=== PATIENT | female | born 1970 | race Caucasian/White ===

== ENCOUNTER 2018-05-31 09:36 | Emergency (ER) | END 2018-05-31 12:52 | disposition home or self-care (01) ==

== ENCOUNTER 2019-01-06 13:20 | Emergency (ER) | payer BC ==
[~2019-01-06] VITALS: Ht 152.4 cm; Wt 54.5 kg
[~2019-01-06 13:20] MED LIST: ALBU18HF IH; B.AN1CAP PO; CIPR500T4; COFF400C PO; CYCL10TA7 PO; DOCU-144; IBUP-1544; LAMO150T3 PO; NAPR-985 PO; OMEP20CA9; PERCOCET; TRAM50TA2 PO
[2019-01-06 13:23] VITALS: BP 143/95; PULSE 113; RESP 18; Ht 152.4 cm; Wt 54.5 kg
[2019-01-06] MEDS ORDERED: DOXY100T20 PO (14:28)
--- NOTE | 2019-01-06 14:45 | ERD ---
ER Documentation Chief Complaint Chief Complaint pt is bib self, sent from Urgent Care for mouth abscess poss infection HPI 48-year-old female presenting with a mouth sore. 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 Patient states that ever since she then she has had pain and feels it is not healing appropriately. Patient was seen in urgent care and they were concerned about a possible abscess in her gums. She has not been started on antibiotics yet. Denies other medical problems. Allergies to Keflex codeine and penicillin. Surgical history denies. Social history denies ROS All systems reviewed and are negative except as per history of present illness. Medications Home Meds Active Scripts Doxycycline Hyclate* (Doxycycline Hyclate*) 100 Mg Tablet., 100 MG PO BID for 10 Days, TAB Prov:CARLA ARTHUR PA-C 01/06/19 Cyclobenzaprine Hcl* (Cyclobenzaprine Hcl*) 10 Mg Tablet, 10 MG PO QHS, #7 TAB Prov:TRUDY CASTRO PA-C 05/31/18 Naproxen* (Naprosyn*) 500 Mg Tablet, 500 MG PO BID PRN for PAIN AND/OR INFLAMMATION, #30 TAB Prov:TRUDY CASTRO PA-C 05/31/18 Tramadol HCl (Tramadol HCl) 50 Mg Tablet, 50 MG PO Q6 PRN for PAIN, #20 TAB Prov:TRUDY CASTRO PA-C 05/31/18 Reported Medications Ciprofloxacin Hcl* (Ciprofloxacin Hcl*) 500 Mg Tablet 03/04/13 Docusate Sodium* (Colace*) 100 Mg Capsule 03/04/13 Omeprazole* (Prilosec*) 20 Mg Capsule. 03/04/13 Ibuprofen* (Ibuprofen*) 800 Mg Tablet 03/04/13 Oxycodone Hcl/Acetaminophen (Percocet) 1 Tab Tab 03/04/13 Coffee Extract (GREEN COFFEE PARRA) 400 Mg Capsule, 400 MG PO DAILY 02/27/13 Albuterol Sulfate* (Ventolin HFA*) 18 Gm Hfa.aer.ad, 18 GM IH PRN 4 PUFFS, #4 07/18/12 B.ani/L.aci/L.mikey/L.plan/L.liu (Probiotic Formula Capsule) 1 Each Capsule, 1 EACH PO BID, #2 07/18/12 Lamotrigine* (Lamictal*) 150 Mg Tablet, 150 MG PO DAILY 07/18/12 Allergies Allergies: Coded Allergies: Penicillins (Verified Allergy, Severe, SWELLING/TROUBLE BREATHING, 03/04/13) Cephalexin Monohydrate (Verified Allergy, Intermediate, WHEEZING, ASTHMA ATTACK, 03/04/13) Codeine (Verified Allergy, Intermediate, WHEEZING, ASTHMA ATTACK, 03/04/13) PMhx/Soc Medical and Surgical Hx: pt denies Medical Hx, pt denies Surgical Hx History of Surgery: No Anesthesia Reaction: No Hx Neurological Disorder: No Hx Respiratory Disorders: No Hx Cardiac Disorders: No Hx Psychiatric Problems: No Hx Miscellaneous Medical Probl: No Hx Alcohol Use: No Hx Substance Use: No Hx Tobacco Use: No Smoking Status: Never smoker Physical Exam Vitals Vital Signs Date Temp Pulse Resp B/P (MAP) Pulse Ox O2 O2 Flow FiO2 Time Delivery Rate 01/06/19 98.1 113 18 143/95 96 13:23 (111) Physical Exam GENERAL: The patient is well-appearing, well-nourished, in no acute distress HEENT: Atraumatic. Conjunctivae are pink. Pupils equal, round, and reactive to light. There is no scleral icterus. Tympanic membranes clear bilaterally. Oropharynx clear. Open irregularly bordered lesions noted to the roof of the mouth on the right side. No induration. Mild swelling noted. NECK: C-spine is soft and supple. There is no meningismus. There is no cervical lymphadenopathy. CHEST: Clear to auscultation bilaterally. There are no rales, wheezes or rhonchi. HEART: Regular rate and rhythm. No murmurs, clicks, rubs or gallops. Results 24 hrs Laboratory Tests Test 01/06/19 14:20 01/06/19 14:23 Bedside Urine pH (LAB) 6.0 Bedside Urine Protein (LAB) Negative Bedside Urine Glucose (UA) Negative Bedside Urine Ketones (LAB) Negative Bedside Urine Blood Negative Bedside Urine Nitrite (LAB) Negative Bedside Urine Leukocyte Esterase (L Negative POC Beta HCG, Qualitative NEGATIVE Procedures/MDM MDM: 48-year-old female presenting with mouth sores. Patient does not appear to have bacterial infection. I do not feel that antibiotics are indicated. I recommend patient wait a few more days prior to taking them and only take if symptoms persist. Patient has postoperative changes noted with some potential viral changes. Patient is discharged with strict ER precautions. All questions answered discharge Departure Diagnosis: Primary Impression: Sore in mouth Condition: Stable Patient Instructions: When Your Child Has Mouth Sores Referrals: COMM[facility]ITY CLINICS YOU HAVE RECEIVED A MEDICAL SCREENING EXAM AND THE RESULTS INDICATE THAT YOU DO NOT HAVE A CONDITION THAT REQUIRES URGENT TREATMENT IN THE EMERGENCY DEPARTMENT. FURTHER EVALUATION AND TREATMENT OF YOUR CONDITION CAN WAIT UNTIL YOU ARE SEEN IN YOUR DOCTORS OFFICE WITHIN THE NEXT 1-2 DAYS. IT IS YOUR RESPONSIBILITY TO MAKE AN APPOINTMENT FOR FOLOW-UP CARE. IF YOU HAVE A PRIMARY DOCTOR --you should call your primary doctor and schedule an appointment IF YOU DO NOT HAVE A PRIMARY DOCTOR YOU CAN CALL OUR PHYSICIAN REFERRAL HOTLINE AT IF YOU CAN NOT AFFORD TO SEE A PHYSICIAN YOU CAN CHOSE FROM THE FOLLOWING [facility] [id number] [facility]. [facility] [place] [address] [facility] [facility] [address] [facility] [address] [facility] [address] [facility] [facility]. [address] Additional Instructions: FOLLOW UP WITH YOUR PRIMARY CARE PHYSICIAN TOMORROW.Return to this facility if you are not improving as expected. CARLA ARTHUR PA-C Jan 06, 2019 14:45 BALA RICE MD Jan 06, 2019 21:03
== END 2019-01-06 15:21 | disposition home or self-care (01) ==
LOC: FTE 13:20
DX: K13.79 Other lesions of oral mucosa (principal)
CPT/HCPCS: 81003; 81025; 99283